=== PATIENT | male | born 1965 | race Caucasian/White ===

== ENCOUNTER 2017-10-02 09:06 | Emergency (ER) | payer OTHER ==
[2017-10-02 09:18] VITALS: BP 107/69
--- NOTE | 2017-10-02 10:30 | UC ---
Hand/Wrist HPI - HPI Summary HPI Summary: Camtherone on right index for wart treatment being prescribed by dermatology in [place]. Patient has a small area of blood blister on finger tip. There is no erythema streaking no limited range of motion no fevers chills - History Of Current Complaint Chief Complaint: UCUpperExtremity Stated Complaint: FINGER COMPLAINT Time Seen by Provider: 10/02/17 10:16 Hx Obtained From: Patient ?: No Onset/Duration: Sudden Onset, Still Present Severity Currently: None - The area patient is concerned about calcium no pain. However in general finger is painful from work treatment and bothers him when he bumps it Pain Intensity: 0 Aggravating Factor(s): Other - When he hits his fingertip by accident Alleviating Factor(s): Nothing Associated Signs And Symptoms: Positive: Negative Related History: Dominant Hand Right - Allergies/Home Medications Allergies/Adverse Reactions: Allergies Allergy/AdvReac Type Severity Reaction Status Date / Time No Known Allergies Allergy Verified 10/02/17 09:18 PMH/Surg Hx/FS Hx/Imm Hx Previously Healthy: Yes - Surgical History Surgical History: Yes Surgery Procedure, Year, and Place: tib fib plateau fracture - Family History Known Family History: Positive: None - Social History Occupation: Employed Full-time Lives: With Family Alcohol Use: Occasionally Substance Use Type: None Smoking Status (MU): Never Smoked Tobacco Review of Systems Constitutional: Negative Skin: Other - Skin is peeling as anticipated from the wart treatment. Eyes: Negative ENT: Negative Respiratory: Negative Cardiovascular: Negative Gastrointestinal: Negative Genitourinary: Negative Motor: Negative Neurovascular: Negative Musculoskeletal: Negative Neurological: Negative Psychological: Negative Is Patient Immunocompromised?: No All Other Systems Reviewed And Are Negative: Yes Physical Exam Triage Information Reviewed: Yes Appearance: Well-Appearing, No Pain Distress, Well-Nourished Vital Signs: Initial Vital Signs Temp 97.8 F 10/02/17 09:13 Pulse 63 10/02/17 09:13 Resp 16 10/02/17 09:13 BP 107/69 10/02/17 09:13 Pulse Ox 98 10/02/17 09:13 Vital Signs Reviewed: Yes Eye Exam: Normal Eyes: Positive: Conjunctiva Clear ENT Exam: Normal ENT: Positive: Normal ENT inspection, Hearing grossly normal. Negative: Trismus , Muffled voice, Hoarse voice Neck exam: Normal Neck: Positive: Supple, Nontender, No Lymphadenopathy Respiratory Exam: Normal Respiratory: Positive: Chest non-tender, Lungs clear, Normal breath sounds, No respiratory distress, No accessory muscle use Cardiovascular Exam: Normal Cardiovascular: Positive: RRR, No Murmur, Pulses Normal, Brisk Capillary Refill Musculoskeletal Exam: Normal Musculoskeletal: Positive: Strength Intact, ROM Intact, No Edema Neurological Exam: Normal Neurological: Positive: Alert, Muscle Tone Normal Psychological Exam: Normal Skin: Positive: Other - Healing as expected from wart treatment, small area of bruise that is not tender there is no streaking appears to be more blood blister like Hand/Wrist Course/Dx - Course Course Of Treatment: Follow-up with beverage steward in [place], dressings and treatment as prescribed we'll give patient a anger tip splint to protect it from trauma observed daily for signs and symptoms of infection follow with PCP/ derm - Differential Dx/Diagnosis Provider Diagnoses: Right index finger tissue irritation Discharge - Sign-Out/Discharge Documenting (check all that apply): Discharge - Discharge Plan Condition: Stable Disposition: HOME Patient Education Materials: Blister (ED) Referrals: Jabier Anaya MD [Primary Care Provider] - Additional Instructions: Follow with you beverage steward as planned - Billing Disposition and Condition Condition: STABLE Disposition: HOME
== END 2017-10-02 10:35 | disposition home or self-care (01) ==
LOC: UCEAST 09:06
DX: M79.9 Soft tissue disorder, unspecified (principal)
CPT/HCPCS: 99212; G0463